=== PATIENT | female | born 1950 | race Caucasian/White ===

== ENCOUNTER → 2020-02-03 | Outpatient (CLI) | payer MEDICARE ==
[2020-02-04 16:07] LABS: HPV 16 Negative (Negative); HPV 18 Negative (Negative); HPV OTHER HR TYPES Negative (Negative)
== END | disposition home or self-care (01) ==
LOC: LAB 10:27 → LAB SHORT 10:27
PROVIDERS: Obstetrics & Gynecology
DX: Z01.419 Encounter for gynecological examination (general) (routine) without abnormal findings (principal)
CPT/HCPCS: 87624; G0123

== ENCOUNTER 2022-08-24 06:25 | Day surgery (SDC) | payer OTHER ==
[~2022-08-24] VITALS: Ht 167.6 cm; Wt 82.0 kg
[2022-08-24] MEDS ORDERED: FLUT.05NI (07:06)
[2022-08-24] MEDS ORDERED: LOSA50 (07:06)
[2022-08-24] MEDS ORDERED: Triamcinolone A15 G4 (07:07)
[2022-08-24 08:38] VITALS: BP 112/60
== END 2022-08-24 08:48 | disposition home or self-care (01) ==
LOC: ORSCSDS 06:25
PROVIDERS: Internal Medicine Gastroenterology
PROC: 0DJD8ZZ Inspection of Lower Intestinal Tract, Via Natural or Artificial Opening Endoscopic (ICD-10-PCS; principal; 2022-08-24 08:00)
DX: Z12.11 Encounter for screening for malignant neoplasm of colon (principal); Z86.010 Personal history of colon polyps; K57.30 Diverticulosis of large intestine without perforation or abscess without bleeding; K64.4 Residual hemorrhoidal skin tags; I10 Essential (primary) hypertension; Z86.16 Personal history of COVID-19; Z79.899 Other long term (current) drug therapy
CPT/HCPCS: J2704; J7120

== ENCOUNTER → 2023-10-10 | Outpatient (CLI) | payer OTHER ==
[~2023-10-10] MED LIST: FLUT.05NI; LOSA50; Triamcinolone A15 G4
== END | disposition home or self-care (01) ==
LOC: LAB 16:41 → LAB SHORT 16:41
DX: L02.214 Cutaneous abscess of groin (principal)
CPT/HCPCS: 87070; 87075; 87077; 87186; 87205

== ENCOUNTER → 2025-01-13 | Outpatient (CLI) | payer OTHER ==
[2025-01-13 13:17] LABS: BASOPHILS ABSOLUTE AUTO 0.02 K/mm3 (0.00-0.23); BASOPHILS PERCENT AUTO 1 % (0-2); EOSINOPHILS ABSOLUTE AUTO 0.14 K/mm3 (0.00-0.68); EOSINOPHILS PERCENT AUTO 4 % (0-6); Hematocrit 39.3 % (33.0-51.0); Hemoglobin 13.0 g/dL (11.5-16.0); IMMATURE GRAN ABSOLUTE AUTO 0.00 K/mm3 (0.00-0.10); IMMATURE GRAN PERCENT AUTO 0 % (0-1); LYMPHOCYTES ABSOLUTE AUTO 1.89 K/mm3 (0.84-5.20); LYMPHOCYTES PERCENT AUTO 48 % (21-46); MONOCYTES ABSOLUTE AUTO 0.38 K/mm3 (0.16-1.47); MONOCYTES PERCENT AUTO 10 % (4-13); Mean Corpuscular HGB Conc 33.1 g/dL (31.5-36.5); Mean Corpuscular Volume 93 fL (80-100); NEUTROPHILS ABSOLUTE AUTO 1.54 K/mm3 (1.96-9.15); NEUTROPHILS PERCENT AUTO 39 % (41-73); NRBC ABSOLUTE 0.00 K/mm3 (0.00-0.02); NRBC Auto 0.0 /100 WBC (0.0-0.2); Platelet Count 169 K/mm3 (150-400); RDW Coefficient Variation 12.8 % (11.7-14.2); RDW Standard Deviation 43.9 fL (35.1-46.3)
[2025-01-13 13:32] LABS: Alanine Aminotransfer (ALT/SGP 30 U/L (12-78); Albumin, Blood 3.8 g/dL (3.4-5.0); Albumin/Globulin Ratio 1.2 (0.8-1.8); Anion Gap 7 mmol/L (3-11); Aspartate Aminotrans (AST/SGOT 24 U/L (12-37); Bilirubin, Total 0.5 mg/dL (0.1-1.0); Blood Urea Nitrogen 17 mg/dL (8-24); CHOL/HDL RATIO 3.7; CO2, Blood 26 mmol/L (21-32); Calcium, Blood 9.0 mg/dL (8.5-10.1); Chloride, Blood 111 mmol/L (98-108); Cholesterol 177 mg/dL (50-200); Creatinine, Blood 0.51 mg/dL (0.40-1.00); Globulin, Blood 3.1 g/dL (2.2-4.0); Glucose, Blood 114 mg/dL (70-99); HDL Cholesterol 48 mg/dL (>39); LDL/HDL RATIO 1.9; Low Density Lipoprotein Chol 91 mg/dL (0-110); Potassium, Blood 3.8 mmol/L (3.5-5.5); Sodium, Blood 140 mmol/L (136-145); Total Protein, Blood 6.9 g/dL (6.4-8.2); Triglycerides 188 mg/dL (30-160); Very Low Density Lipoprot Chol 37 mg/dL (6-32)
== END | disposition home or self-care (01) ==
LOC: LAB 07:40 → LAB SHORT 07:40
PROVIDERS: Student in an Organized Health Care Education/Training Program
DX: E78.2 Mixed hyperlipidemia (principal); I10 Essential (primary) hypertension
CPT/HCPCS: 80053; 80061; 85025